=== PATIENT | male | born 1955 ===

== ENCOUNTER → 2023-01-09 | Day surgery (SDC) | payer OTHER ==
[~2023-01-09] VITALS: Ht 162.6 cm; Wt 72.6 kg
[~2023-01-09] MED LIST: KETO10TA2 PO; MIRALAX17 GM PO; TRAMADOL HCL50 MG PO; TYLENOL ARTHRI650 MG PO
== END | disposition home or self-care (01) ==
LOC: ADM 01-03 08:00 → CIR.AMB 08:00
PROVIDERS: ATTEND Surgery
DX: K40.30 Unilateral inguinal hernia, with obstruction, without gangrene, not specified as recurrent (principal); Z20.822 Contact with and (suspected) exposure to COVID-19; I10 Essential (primary) hypertension; Z03.818 Encounter for observation for suspected exposure to other biological agents ruled out; R10.9 Unspecified abdominal pain
CPT/HCPCS: 49507; C1781